=== PATIENT | female | born 1990 | race Caucasian/White ===

== ENCOUNTER 2018-06-13 08:55 | Outpatient (CLI) | payer BC ==
--- NOTE | 2018-06-13 11:08 | RAD ---
3 VIEWS LEFT FOOT: Date: 06/13/18 COMPARISON: None. HISTORY: Patient has been training for a marathon with left foot pain for 9 weeks. FINDINGS: Three views of the left foot show no evidence of acute fracture or dislocation. No significant perios teal reaction is seen to suggest a stress fracture. No soft tissue swelling is seen. No degenerative changes are present. IMPRESSION: Unremarkable exam. POS: [facility]HA[facility]
== END 2018-06-13 08:56 | disposition home or self-care (01) ==
LOC: SCSRAD 08:55
PROVIDERS: ATTEND Family Medicine
DX: M79.672 Pain in left foot (principal); M79.675 Pain in left toe(s)